=== PATIENT | female | born 2005 | race Caucasian/White ===

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

== ENCOUNTER 2025-01-13 20:07 | Emergency (ER) | payer MEDICAID, SELFPAY ==
[2025-01-13 20:08] VITALS: BP 118/63; PULSE 107; RESP 18; TEMP 36.7; O2SAT 100
--- NOTE | 2025-01-13 20:14 | RAD_ITS ---
PROCEDURE: RIGHT ANKLE MIN 3 VIEWS 01/13/2025 REASON FOR EXAM: SWELLING, UNABLE TO BEAR WEIGHT, DEFORMITY TECHNIQUE: Procedure Code: RADANK Modality: DX Procedure: ANKLE MIN 3 VIEWS Laterality: Right COMPARISON: None. FINDINGS: No acute fracture or dislocation. Alignment is anatomic. Preserved joint spaces. No aggressive osseous lesion. Soft tissue swelling overlying the lateral malleolus. No radiopaque foreign body. RAD/Ankle min 3 Views IMPRESSION: No acute fracture or dislocation. Soft tissue swelling about the lateral malleolus may reflect ankle sprain. Reading Location: [facility]
--- NOTE | 2025-01-13 21:03 | EX.ED.GENINJ ---
HPI History of Present Illness Chief Complaint: Lower Extremity Injury Detail of Chief Complaint: Right ankle injury due to plantar inversion mechanism injury Informant: patient Onset/Context/Timing Onset: Today and Hours Mechanism/Context: Blunt Injury (Plantar inversion mechanism of injury) Location of pain/injuries: Right ankle Quality of Pain: Dull and Aching Location: Lateral right ankle Current Severity: Mild Maximum Severity: Moderate Worsened by: Weightbearing, movement and palpation Relieved by: Remaining still Associated Symptoms Associated Symptoms: Negative for Parasthesias, Weakness, Loss of function or Inability to ambulate Narrative Narrative: Patient is a 19-year-old female. She had a plantar inversion mechanism injury. Complains of pain to the lateral right ankle. She has no prior history of injury. She denies paresthesia, anesthesia or motor weakness. Prior similar symptoms: No Recent Illness/Hospitalization: No PFSH PFSH Medical History no medical history Home Medications ?Medication ?Instructions ?Recorded ?Last Taken ?Type aripiprazole 5 mg tablet 2.5 mg PO BID 07/26/18 Unknown History guanfacine 1 mg tablet 1 mg PO DAILY 07/26/18 Unknown History naproxen 500 mg tablet 500 mg PO BID #14 tabs 01/13/25 Unknown Rx Allergy/AdvReac Type Severity Reaction Status Date / Time No Known Allergies Allergy Verified 01/13/25 20:08 Family History no significant family his Surgical History no surgical history Social History Smoking Status: Never smoker ROS ROS ED Integumentary Denies Abrasions or rash Neurologic Neurologic: Denies paresthesias or weakness Hematologic/Lymphatic Hematologic/Lymphatic: Denies easy bleeding or easy bruising EXAM Physical Exam Const Vital Signs: 01/13/25 20:08 Temperature 98.1 F Temperature Source Temporal Pulse Rate 107 H Respiratory Rate 18 Blood Pressure 118/63 Blood Pressure Mean 81 Pulse Ox 100 Oxygen Delivery Method Room Air Positive well nourished and well developed General Appearance ED: well developed and NAD HEENT atraumatic Eyes PERRL and EOMs intact bilaterally Resp normal respiratory effort Cardio regular rhythm Rate: regular rate Extremity Negative for normal to inspection Extremity Narrative: There is swelling over the lateral malleolus. There is pain outpatient posterior distal 3 cm of the lateral malleolus. There is pain ovation of the anterior talofibular and the calcaneofibular ligament. There is no laxity with drawer testing. There is no pain to palpation of the base of the fifth metatarsal. DP and PT pulse are palpable Neuro oriented x3, CN's II-XII intact bilaterally and moves all extremities Psych mental status grossly normal and thought process normal Skin no rashes or lesions noted, no wounds, skin turgor normal and no jaundice Skin Narrative: Hematoma over the lateral malleolus. MDM MDM MDM Narrative Medical decision making narrative: Per the [place] ankle rule imaging is required. Differential diagnosis fracture versus sprain. Radiography Chest X-Ray - ED: Read by ED Physician (Three-view x-ray reveals no fracture, widening of the mortise. There is soft tissue swelling noted laterally.) Diagnostic Testing: Clinical Impression(s) from Imaging Studies Ankle X-Ray 01/13/25 20:14 IMPRESSION: No acute fracture or dislocation. Soft tissue swelling about the lateral malleolus may reflect ankle sprain. Reading Location: [facility] Discharge Plan Triage Chief Complaint: Lower Extremity Injury ED Provider: Hernan Bravo Dx/Rx/DC Orders Clinical Impression: Sprain of anterior talofibular ligament of right ankle, Sprain of calcaneofibular ligament of right ankle, Difficulty walking due to ankle and foot joint Instructions: ED Ankle Sprain (Adult) Prescriptions: New naproxen 500 mg tablet 500 mg PO BID Qty: 14 0RF No Action guanfacine 1 MG tablet 1 mg PO DAILY aripiprazole 5 tablet 2.5 mg PO BID Primary Care Provider: Care Physician,No Primary Referrals: Janette Walton DO [Med Staff - Supervisor Soldering, Internal Medicine] - 1 Week if not improving Care Physician,No Primary [Primary Care Provider, Medical] Activity Restrictions/Additional Instructions: 1. Apply ice to your right ankle 6-8 times a day for the next 3 to 5 days. 2. You need to wear flat shoe until you are pain-free. No going up steep inclines or ladders. Print Language: German Disposition Disposition: Home, Self Care
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
[2025-01-13 21:12] VITALS: BP 118/63; PULSE 107; RESP 18; TEMP 36.7; O2SAT 100
== END 2025-01-13 21:19 | disposition home or self-care (01) ==
PROVIDERS: Emergency Provider Emergency Medicine; Visit Provider Emergency Medicine
DX: S93.411A Sprain of calcaneofibular ligament of right ankle, initial encounter (principal); S93.491A Sprain of other ligament of right ankle, initial encounter; R26.2 Difficulty in walking, not elsewhere classified; X58.XXXA Exposure to other specified factors, initial encounter
CPT/HCPCS: 73610; 99282